=== PATIENT | female | born 1960 | race Caucasian/White ===

== ENCOUNTER 2016-06-21 14:30 | Emergency (ER) | payer BC | END 2016-06-21 19:08 | disposition home or self-care (01) | LOC: ER 14:30 | DX: N30.01 Acute cystitis with hematuria (principal); I10 Essential (primary) hypertension; E78.00 Pure hypercholesterolemia, unspecified | CPT/HCPCS: 36415; 80053; 81001; 83690; 85025; 87077; 87088; 87186; 96372 ==